=== PATIENT | female | born 2000 | race African-American/Black ===

== ENCOUNTER 2024-06-11 19:17 | Emergency (ER) | payer BC, OTHER ==
[2024-06-11 20:02] LABS: Bilirubin Negative (Negative); Blood, Urine Negative (Negative); CAUTI Indications for Culture Pelvic or flank pain; Clarity Clear (Clear); Glucose, Urine (Dipstick) Normal (Negative); Ketone, Urine Negative (Negative); Leukocyte Negative Leu/uL (Negative); Nitrite Negative (Negative); Protein, Urine (Dipstick) Negative (Neg-Trace); RBC/HPF 0-3 HPF (0-3); Specific Gravity, Urine 1.009 (1.002-1.036); Squamous Epithelial 0-3 HPF (0-3); Urobilinogen Normal mg/dL (Less than 2); WBC/HPF 0-3 HPF (0-3); pH, Urine 6.5 (5.0-9.0)
[2024-06-11 20:03] LABS: Bacteria/HPF Rare-Few HPF (None Seen); Pregnancy Test - Urine (BHCG) Negative (Negative)
[2024-06-11 20:04] LABS: Pregu Control Background? CLEAR/WHITE (CLR/WHITE); Pregu Control Bar Appear? YES (CONTROL BAR); Specific Gravity 1.009 (1.002-1.036); Urine Culture Reflex No No
[2024-06-11] MEDS ORDERED: Ondansetron ODT 4 MG TAB ONE (20:05)
[2024-06-11] MEDS ORDERED: Acetaminophen 500 MG TAB ONE (20:05)
[2024-06-11] MEDS ORDERED: Dicyclomine 20 MG TAB ONE (20:15)
== END 2024-06-11 21:00 | disposition home or self-care (01) ==
LOC: ERS 19:17
DX: R10.13 Epigastric pain (principal)
CPT/HCPCS: 81001; 81025; 99283; Q0162